=== PATIENT | female | born 1950 | race Caucasian/White ===

== ENCOUNTER 2016-12-17 17:37 | Inpatient (IN) | payer MEDICARE, OTHER ==
[~2016-12-17] VITALS: Ht 170.2 cm; Wt 129.1 kg
[2016-12-17] MEDS ORDERED: TESSALON PERLE100 MG PO (18:03)
[2016-12-17] MEDS ORDERED: CIPRO500 MG PO (18:03)
[2016-12-17] MEDS ORDERED: HYDROCODONE-APA1 TAB PO (18:05)
[2016-12-17] MEDS ORDERED: PROAIR HFA8.5 GM INH (18:05)
[2016-12-17] MEDS ORDERED: ULORIC40 MG PO (18:06)
[2016-12-17] MEDS ORDERED: FUROSEMIDE20 MG PO (18:07)
[2016-12-17] MEDS ORDERED: LEVOTHYROXINE75 MCG PO (18:07)
[2016-12-17] MEDS ORDERED: K-DUR20 MEQ PO (18:09)
[2016-12-17] MEDS ORDERED: MUCINEX D1 TAB.SR . PO (18:09)
--- NOTE | 2016-12-17 18:16 | NUR ---
RECIEVED FROM DOCTORS OFFICE. ALERT AND ORIENTED. DENIES ANY NEEDS. UP AB LUCILA. V/S STABLE WILL MONITOR
--- NOTE | 2016-12-17 18:39 | NUR ---
PT EATING, ASKED TO WAIT UNTIL SHE EATS TO START IV
[2016-12-17 18:53] LABS: BASOPHILS 0.2 % (0.0-2.0); EOSINOPHILS 3.9 % (0-7); HEMATOCRIT 39.1 % (36.0-48.0); HEMOGLOBIN 12.7 g/dL (12-16); IMMATURE GRANULOCYTES 0.4 % (0-5); LYMPHOCYTES 30.3 % (15-50); MCH 30.7 pg (26.0-34.0); MCHC 32.5 g/dL (31.0-37.0); MCV 94.4 fL (80.0-100.0); MEAN PLATELET VOLUME 9.5 fL (7.4-10.4); NEUTROPHILS 53.2 % (40-80); PLATELET COUNT 211 10x3/uL (130-400); RBC 4.14 10x6/uL (4.00-5.40); RDW 13.3 % (11.5-14.5); WBC 4.9 10x3/uL (4.8-10.8)
--- NOTE | 2016-12-17 19:05 | NUR ---
RECEIVED REPORT, PT NEEDS IV, WILL ATTEMPT TO START IV, BED IS LOW, SRX2, CALL LIGHT IN REACH, WILL CONTINUE TO MONITOR
--- NOTE | 2016-12-17 19:25 | NUR ---
IV SITED TO RIGHT FA 22G X2 STICKS. NURSE NOTIFIED FOR ANTIBIOTIC DOSE TO BE GIVEN.
[2016-12-17 19:48] LABS: ALBUMIN 3.4 g/dL (3.4-5.0); ANION GAP 16.5 mmol/L (8-16); BILIRUBIN - TOTAL 0.54 mg/dL (0.2-1.3); CALCIUM 8.6 mg/dL (8.5-10.1); CARBON DIOXIDE 23.7 mmol/L (21.0-32.0); CREATININE - SERUM 2.2 mg/dL (0.6-1.3); POTASSIUM - SERUM 3.2 mmol/L (3.5-5.1); PROTEIN - SERUM 6.9 g/dL (6.4-8.2)
[2016-12-17 20:00] VITALS: BP 137/72
[2016-12-18] VITALS (7 sets, daily range): BP systolic 114–146; BP diastolic 53–109; BMI 46.3
--- NOTE | 2016-12-18 07:54 | NUR ---
RADHA DE OLIVEIRA- PT IS CURRENTLY USING BATHROOM. UP AD LUCILA. ALERT AND ORIENTED. IV SEEN TO LEFT FOREARM THAT IS SALINE LOCKED AND PATENT. ON ROOM AIR. NO MONITOR. NO NEED AT CURRENT TIME. WILL CONTINUE TO MONITOR.
--- NOTE | 2016-12-18 09:09 | NUR ---
PT TO XRAY VIA WHEELCHAIR.
--- NOTE | 2016-12-18 12:36 | NUR ---
NOTIFIED EDEL MUNOZ NP WHO IS ON UNIT ABOUT PTS POTASSIUM LEVEL OF 3.2 THIS AM. ALSO NOTIFIED KRISTIAN HOLLINGSWORTH THAT PT IS TAKING A POTASSIUM PILL IN THE MORNING. KRISTIAN HOLLINGSWORTH IS NOW NOTIFIED. WILL CONTINUE TO MONITOR.
--- NOTE | 2016-12-18 18:05 | NUR ---
PT SITTING UP IN BED WITH IV ANTIBIOTICS RUNNING CURRENTLY. PT DENIES ANY NEED AT CURRENT TIME. WILL CONTINUE TO MONITOR.
--- NOTE | 2016-12-18 19:10 | NUR ---
RECEIVED REPORT, PT GOING VIA WHEELCHAIR TO CT SCAN, WILL CONTINUE TO MONITOR
--- NOTE | 2016-12-18 19:40 | NUR ---
BACK FROM CT SCAN, SITTING ON SIDE OF BED, IV-LFA-SL, [id number], DENIES ANY NEEDS, CALL LIGHT IN REACH, WILL CONTINUE TO MONITOR
[2016-12-19 01:48] VITALS: BP 128/65
--- NOTE | 2016-12-19 03:14 | NUR ---
ASSESSMENT COMPLETE, PT SLEEPING, CALL LIGHT IN REACH
--- NOTE | 2016-12-19 04:00 | NUR ---
LINUX NETWORK SYSTEMS ADMINISTRATOR AT BEDSIDE FOR VS. CONT TO MONITOR.
[2016-12-19 05:05] VITALS: BP 170/77
[2016-12-19 08:31] VITALS: BP 144/70
[2016-12-19 12:00] VITALS: BP 149/68
[2016-12-19 14:21] VITALS: Ht 170.2 cm; Wt 129.1 kg
[2016-12-19 14:53] LABS: BASOPHILS 0.1 % (0.0-2.0); EOSINOPHILS 0 % (0-7); HEMATOCRIT 39.3 % (36.0-48.0); IMMATURE GRANULOCYTES 0.9 % (0-5); LYMPHOCYTES 7.6 % (15-50); MCH 30.8 pg (26.0-34.0); MCHC 33.1 g/dL (31.0-37.0); MCV 93.1 fL (80.0-100.0); MEAN PLATELET VOLUME 9.4 fL (7.4-10.4); MONOCYTES 2.8 % (2-11); NEUTROPHILS 88.6 % (40-80); PLATELET COUNT 217 10x3/uL (130-400); RBC 4.22 10x6/uL (4.00-5.40); RDW 13.4 % (11.5-14.5)
[2016-12-19 15:01] LABS: WBC 7.7 10x3/uL (4.8-10.8)
[2016-12-19 15:04] LABS: ANION GAP 18.1 mmol/L (8-16); CALCIUM 8.6 mg/dL (8.5-10.1); CARBON DIOXIDE 21.7 mmol/L (21.0-32.0); CREATININE - SERUM 2.5 mg/dL (0.6-1.3)
[2016-12-19 15:09] LABS: POTASSIUM - SERUM 3.8 mmol/L (3.5-5.1)
[2016-12-19 16:22] VITALS: BP 158/67
--- NOTE | 2016-12-19 19:30 | NUR ---
RECEIVED REPORT, [id number] INFUSING, BED IS LOW, SRX2, DENIES ANY NEEDS, CALL LIGHT IN REACH, WILL CONTINUE TO MONITOR
[2016-12-19 22:23] VITALS: BP 150/68
[2016-12-20] VITALS (7 sets, daily range): BP systolic 120–154; BP diastolic 47–79
--- NOTE | 2016-12-20 03:34 | NUR ---
ASSESSMENT COMPLETE, NO DISTRESS NOTICED, RESTING WELL, CALL LIGHT IN REACH, WILL CONTINUE TO MONITOR
[2016-12-20 06:55] LABS: BASOPHILS 0.1 % (0.0-2.0); EOSINOPHILS 0 % (0-7); HEMATOCRIT 37.7 % (36.0-48.0); HEMOGLOBIN 12.3 g/dL (12-16); IMMATURE GRANULOCYTES 1.7 % (0-5); LYMPHOCYTES 7.4 % (15-50); MCH 30.1 pg (26.0-34.0); MCHC 32.6 g/dL (31.0-37.0); MCV 92.2 fL (80.0-100.0); MEAN PLATELET VOLUME 9.6 fL (7.4-10.4); MONOCYTES 5.3 % (2-11); NEUTROPHILS 85.5 % (40-80); PLATELET COUNT 253 10x3/uL (130-400); RBC 4.09 10x6/uL (4.00-5.40); RDW 13.4 % (11.5-14.5); WBC 8.7 10x3/uL (4.8-10.8)
[2016-12-20 06:59] LABS: ANION GAP 14.5 mmol/L (8-16); CALCIUM 8.7 mg/dL (8.5-10.1); CARBON DIOXIDE 23.2 mmol/L (21.0-32.0); CREATININE - SERUM 2.7 mg/dL (0.6-1.3); POTASSIUM - SERUM 3.7 mmol/L (3.5-5.1)
--- NOTE | 2016-12-20 07:33 | NUR ---
PT SITTING UP IN BED DENIES NEEDS WILL CONT TO MONITOR
[2016-12-20 08:22] LABS: MAGNESIUM - SERUM 1.4 mg/dL (1.8-2.4); POTASSIUM - SERUM 3.7 mmol/L (3.5-5.1)
--- NOTE | 2016-12-20 09:40 | CN ---
PATIENT NAME:SARAI STOREY MEDICAL RECORD: [id number] : [birth year] LOCATION:D. D.2133 ADMIT DATE: 12/17/16 ACCOUNT: [id number] CONSULTING PHYSICIAN: FLORENCIA ABRAHAM MD REFERRING PHYSICIAN: BRANNON LEONG MD DATE OF CONSULTATION: 12/17/2016 Consult Note CONSULT REQUESTING PHYSICIAN: Dr. Ahmet Francisco REASON FOR CONSULTATION: Acute exacerbation of chronic obstructive pulmonary disease, questionable pneumonia. HISTORY OF PRESENT ILLNESS: Ms. Storey is a 66-year-old female. She is sick for the last 1 week. She was initially given Zithromax and then she was given Cipro. Yesterday, she was seen in Dr. Leong's office. The patient was still wheezing, short of breath and congested. Chest radiograph showed some pneumonia. Now, she does not have any fever or chills, no night sweats. REVIEW OF SYSTEMS: CONSTITUTIONAL: Negative for fever and chills. HEENT: Sinus congestion. RESPIRATORY: As in history of present illness. GASTROINTESTINAL: No nausea, vomiting or diarrhea. GENITOURINARY: Negative. Other review of the systems is negative. PAST MEDICAL HISTORY: 1. Chronic kidney disease with a kidney stone. 2. Gastroesophageal reflux disease. 3. Bladder polyps. 4. History of breast biopsy. PAST SURGICAL HISTORY: 1. She has breast biopsy. 2. Hysterectomy. 3. Cholecystectomy. 4. Back surgery. 5. 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 6. Tube in left ear placement. FAMILY HISTORY: Noncontributory. PERSONAL AND SOCIAL HISTORY: The patient is an ex-smoker. She quit it more than 10 years ago. She is a nondrinker. PHYSICAL EXAMINATION: GENERAL: Now, the patient is sitting comfortably in bed, she is not in acute distress. VITAL SIGNS: The blood pressure is 143/55, pulse is 62, respiration is 18, temperature 98.1, SpO2 of 97% on room air. HEENT: Conjunctivae are pink. Sclerae nonicteric. NECK: Supple, no JVD. CHEST: Excursion is minimal on both sides prolonged. Expiration with wheezing. CONSULT REPORT [id number] SARAI STOREY HEART: Rhythm regular, normal sound, no murmur. ABDOMEN: Soft, bowel sounds present. No hepatosplenomegaly. RECTAL: Deferred. EXTREMITIES: No cyanosis, no clubbing, no pedal edema. SKIN: Warm, normal turgor. CENTRAL NERVOUS SYSTEM: The patient is awake and alert. There is no obvious cranial nerve abnormality. The gait was not tested. CHEST RADIOGRAPH: There are increased interstitial markings. No consolidation. OTHER LABORATORY DATA: CBC: WBC 4.9, hemoglobin is 12.7, hematocrit 39.1 and the platelet count 211. Chemistry: Sodium 143, potassium 3.2, BUN is 24, creatinine 2.2. IMPRESSION: 1. Acute exacerbation of chronic obstructive pulmonary disease. 2. Tracheobronchitis. 3. Associated pneumonitis. 4. Ex-smoker. 5. Gastroesophageal reflux disease. 6. Gout. 7. Chronic kidney disease. 8. Hypokalemia. RECOMMENDATION: 1. We will start methylprednisalone IV, Brovana, budesonide nebulizer, albuterol and ipratropium nebulizer. 2. Repeat the CT of the chest in a.m. 3. Singulair 10 mg a day. 4. Methylprednisolone IV. Dr. Leong, once again thanks for involving me in the care of Ms. Storey. TRANSINT:[id number] Voice Confirmation ID: [id number] DOCUMENT ID: [id number] FLORENCIA ABRAHAM MD at 0940 CC: BRANNON LEONG MD [id number] DICTATION DATE: 12/18/16 1738 COMMERCIAL ARTIST LETTERING: 12/19/16 0155 ADM IN [id number] [place] [address]
--- NOTE | 2016-12-20 13:34 | NUR ---
RESTING WITH EYES CLOSED. CALL LIGHT WITHIN REACH
--- NOTE | 2016-12-20 13:34 | NUR ---
Patient Name: SARAI MARTINEZ Admission Status: Urgent Accout number: [id number] Admission Date: 12-17-2016 : 1950 Admission Diagnosis: Attending: RONN Current LOS: 1 Anticipated DC Date: Planned Disposition: Home Primary Insurance: MEDICARE A & B LATE ENTRY FROM 12-18-16 AT 1342 HOURS: Discharge Planning Comments: * Is the patient Alert and Oriented? Yes 0 * How many steps to enter\exit or inside your home? RAMP 0 * PCP DR. LEONG 0 * Pharmacy [facility] [address] * Preadmission Environment Home with Family 0 * ADLs Independent 0 * Equipment Cane Other- ELECTRIC SCOOTER Walker 0 * Other Equipment NO MEDICAL EQUIPMENT PROVIDER PREFERENCE 0 * List name and contact numbers for known caregivers / representatives who currently or will assist patient after discharge: BRAXTON MARTINEZ, SPOUSE, 0 * Community resources currently utilized None 0 * Please name any agencies selected above. NONE 0 * Additional services required to return to the preadmission environment? No 0 * Can the patient safely return to the preadmission environment? Yes 0 * Has this patient been hospitalized within the prior 30 days at any hospital? No 0 CM MET WITH PT IN ROOM TO DISCUSS DISCHARGE PLANNING AND NEEDS. PT REPORTS LIVING AT HOME INDEPENDENTLY WITH SPOUSE. 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 PT HAS NO MEDICAL EQUIPMENT PROVIDER PREFERENCE. PT HAS NO OUTSIDE SERVICES ASSISTING IN THE HOME. CM DISCUSSED AVAILABILITY OF HOME HEALTH, REHAB SERVICES AND MEDICAL EQUIPMENT. PT DENIES DISCHARGE NEEDS, REPORTS HER SPOUSE WILL PICK HER UP FOR DISCHARGE HOME. PT PLANS TO DISCHARGE HOME WITH SPOUSE, NO ANTICIPATED NEEDS. CM TO FOLLOW AND ASSIST NEEDED. Marine Surveyor: Herber Ramirez
[2016-12-20] MEDS ORDERED: IPRAT-ALBUT 0.5-3 ML UPD ×2 (17:16→17:27)
[2016-12-20] MEDS ORDERED: LEVAQUIN500 MG PO (17:19)
[2016-12-20] MEDS ORDERED: PREDNISONE10 MG PO (17:20)
[2016-12-20] MEDS ORDERED: ADVAIR 250/501 DISK INH (17:25)
--- NOTE | 2016-12-20 20:56 | NUR ---
HS MEDS GIVEN.
--- NOTE | 2016-12-20 22:54 | NUR ---
RESTING IN BED. ALERT/ORIENTED. IV ABT ZITHROMAX UP AND INFUSING TO LFA. HS MEDS GIVEN. O2 @ 1.5ML/HR WITH NONLABORED RESPIRATIONS. SCDS IN PLACE. SEE ASSESSMENT. CPOC. PT SAYING SHE POSSIBLY WILL D/C TOMORROW. WILL MONITOR, CONTINUE POC.
[2016-12-21 00:24] VITALS: BP 131/52
[2016-12-21 04:23] VITALS: BP 150/76
[2016-12-21 06:16] LABS: BASOPHILS 0.1 % (0.0-2.0); EOSINOPHILS 0 % (0-7); HEMATOCRIT 37.2 % (36.0-48.0); HEMOGLOBIN 12.1 g/dL (12-16); IMMATURE GRANULOCYTES 2.1 % (0-5); LYMPHOCYTES 6.1 % (15-50); MCH 30.1 pg (26.0-34.0); MCHC 32.5 g/dL (31.0-37.0); MCV 92.5 fL (80.0-100.0); MEAN PLATELET VOLUME 9.6 fL (7.4-10.4); MONOCYTES 3.2 % (2-11); NEUTROPHILS 88.5 % (40-80); PLATELET COUNT 239 10x3/uL (130-400); RBC 4.02 10x6/uL (4.00-5.40); RDW 13.6 % (11.5-14.5)
[2016-12-21 06:28] LABS: ANION GAP 15.7 mmol/L (8-16); CALCIUM 8.7 mg/dL (8.5-10.1); CARBON DIOXIDE 24.1 mmol/L (21.0-32.0); CREATININE - SERUM 2.8 mg/dL (0.6-1.3); MAGNESIUM - SERUM 1.5 mg/dL (1.8-2.4); PHOSPHOROUS 4.6 mg/dL (2.5-4.9); POTASSIUM - SERUM 4.8 mmol/L (3.5-5.1)
--- NOTE | 2016-12-21 07:18 | NUR ---
WHEN GIVING AM MEDS, ALSO BROUGHT MOM AND DULCOLAX TABS FOR PATIENT PER DR MONGE ORDERS. PT STATES SHE HAD LARGE BM LAST NIGHT AND DOES NOT NEED THE LAXATIVE NOW.
--- NOTE | 2016-12-21 07:26 | NUR ---
PT SITTING UP ON SIDE OF THE BED DENIES NEEDS WILL CONT TO MONITOR,.
--- NOTE | 2016-12-21 08:47 | EC ---
PATIENT:SARAI MARTINEZ DATE OF SERVICE: 12/17/16 SEX: F MEDICAL RECORD: [id number] DATE OF : [birth year] LOCATION:D. D.213 AGE OF PATIENT: 66 ADMISSION DATE: 12/17/16 REFERRING PHYSICIAN: INTERPRETING PHYSICIAN: GERALD SOTO MD ECHOCARDIOGRAM REPORT ECHO CHARGES 4 ECHO COMPLETE CLINICAL DIAGNOSIS: ARRHYTHMIA ECHOCARDIOGRAPHIC MEASUREMENTS (adult normal given) AC root (d.<3.7cm) 3.0 LV Septum d (<1.2 cm> 1.3 Valve Excursion 1.6 LV Septum (systole) 1.8 Left Atria (s.<4.0cm> 4.8 LVPW d(<1.2cm) 1.2 RV (d.<2.3cm) 3.1 LVPW (sytole) 2.1 LV diastole(<5.6CM) 5.2 MV E-F(>70mm/sec) LV systole 2.8 LVOT Diameter 1.8 MV exc.(>10mm) Est.ejection fraction (50-75%) Pericardial Effusion N DOPPLER: LVIT A 100 E 70.0 LA RVSP 64.0 LVOT 232 AOP1/2T Asc. Ao 287 RVOT 135 RA PA 151 AV Gradient Peak 33.0 AV Mean 17.0 AV Area 2.1 MV Gradient Peak 6.0 MV Mean 2.4 MV Area COMMENTS: Hatch Boss: Elaine SMITHOE Welding Foreman:1 Dr. Soto TAPE# PACS DATE OF SERVICE: 12/19/2016 Echocardiogram FINDINGS: 1. Left ventricle chamber size is within normal limits. Left ventricular systolic function is normal. Overall ejection fraction estimated at 65%. 2. Left atrium is enlarged at 4.8 cm. Right atrium and right ventricular chamber sizes are as well mildly dilated. 3. Valvular structures have normal structure and motion. ECHOCARDIOGRAM REPORT [id number] SARAI MARTINEZ 4. Doppler interrogation reveals mild tricuspid regurgitation, no other valvular insufficiency or stenosis; however, pulmonary systolic pressure is elevated, estimated at 64 mmHg. 5. No evidence of pericardial effusion or left ventricular thrombus. TRANSINT:[id number] Voice Confirmation ID: [id number] DOCUMENT ID: [id number] GERALD SOTO MD at 0829 CC: [id number] DICTATION DATE: 12/19/16 1039 REAL ESTATE INVESTMENT ANALYST: 12/19/16 1254 ADM IN [facility] [address] [place] [address]
[2016-12-21 08:49] VITALS: BP 169/84
--- NOTE | 2016-12-21 09:38 | NUR ---
Patient Name: SARAI MARTINEZ Encounter No: [id number] : 1950 Primary Insurance: MEDICARE A & B Anticipated DC Date: 12-21-2016 Planned Disposition: Home DCP follow-up note: CM RECEIVED DISCHARGE ORDER 12-20-16 ALONG WITH PRESCRIPTION FOR NEBULIZER. CM MET WITH PT WHO HAS NO PREFERENCE ON MEDICAL EQUIPMENT PROVIDER. PT WOULD LIKE HOME DELIVERY FOR THE NEBLUZER. IMPORTANT MESSAGE FROM MEDICARE PROVIDED AND DISCUSSED. PT REPORTS THE DOCTOR IS DISCHARGING HER ON 12-21-16. CM VERIFIED THIS WITH TUMBLER TENDER. CM CONFIRMED DISCHARGE HOME ON 12-21-16. CM CALLED [facility], , SPOKE TO NERY WHO WILL ARRANGE HOME DELIVERY OF NEBULIZER. CM FAXED REFERRAL INFORMATION TO [facility] AT [phone]. PT NOTIFIED, DENIES DISCHARGE NEEDS, SPOUSE TO SUPERVISOR FRONT PT SHORTLY FOR DISCHARGE HOME. Herber Ramirez, CASE MANAGEMENT
--- NOTE | 2016-12-21 09:53 | NUR ---
WENT OVER PT DC PAPERWORK WITH PT PT VERBALIZES UNDERSTANDING DC PIV WITH CATHETER TIP INTACT. PT WAITING ON HER RIDE.
--- NOTE | 2016-12-21 10:23 | NUR ---
PT WHEELED OUT VIA VOLUNTEER.
--- NOTE | 2016-12-21 10:24 | NUR ---
PT HAS HER RESPIRATORY DISK AND SCRIPT FROM HOSPITAL. THAT WERE ORDERED TO BE GIVEN TO HER.
== END 2016-12-21 10:24 | disposition home or self-care (01) | DRG 190 ==
LOC: D.M2 17:37
PROVIDERS: Family Medicine; ADMIT Family Medicine
DX: J44.0 Chronic obstructive pulmonary disease with (acute) lower respiratory infection (principal); J18.9 Pneumonia, unspecified organism; J44.1 Chronic obstructive pulmonary disease with (acute) exacerbation; I12.9 Hypertensive chronic kidney disease with stage 1 through stage 4 chronic kidney disease, or unspecified chronic kidney disease; N18.3 Chronic kidney disease, stage 3 (moderate); K21.9 Gastro-esophageal reflux disease without esophagitis; E87.6 Hypokalemia; I07.1 Rheumatic tricuspid insufficiency; Z87.891 Personal history of nicotine dependence

== ENCOUNTER → 2017-05-13 09:49 | Outpatient (CLI) | payer MEDICARE, OTHER ==
[2016-12-19 14:21] VITALS: BMI 44.4
[~2017-05-13 09:49] MED LIST: ADVAIR 250/501 DISK INH; CIPRO500 MG PO; FUROSEMIDE20 MG PO; HYDROCODONE-APA1 TAB PO; IPRAT-ALBUT 0.5-3 ML UPD; K-DUR20 MEQ PO; LEVAQUIN500 MG PO; LEVOTHYROXINE75 MCG PO; MUCINEX D1 TAB.SR . PO; PREDNISONE10 MG PO; PROAIR HFA8.5 GM INH; TESSALON PERLE100 MG PO; ULORIC40 MG PO
[2017-05-13 13:03] LABS: ALBUMIN 3.2 g/dL (3.4-5.0); BILIRUBIN - DIRECT 0.15 mg/dL (0.00-0.30); BILIRUBIN - INDIRECT 0.49 mg/dL (0.00-1.00); BILIRUBIN - TOTAL 0.64 mg/dL (0.2-1.3); PROTEIN - SERUM 6.4 g/dL (6.4-8.2); THYROID STIMULATING HORMONE 2.32 uIU/mL (0.36-3.74)
[2017-05-14 14:19] LABS: ANA REFLEX - ANTICHROMATIN ABS <0.2 AI (0.0-0.9); ANA REFLEX - CENTROMERE B ABS <0.2 AI (0.0-0.9); ANA REFLEX - DBL STRANDED DNA <1 IU/mL (0-9); ANA REFLEX - DIRECT Positive (Negative); ANA REFLEX - JO-1 AB <0.2 AI (0.0-0.9); ANA REFLEX - RNP ANTIBODIES 2.8 AI (0.0-0.9); ANA REFLEX - SCL-70 <0.2 AI (0.0-0.9); ANA REFLEX - SJOGRENS AB SSA <0.2 AI (0.0-0.9); ANA REFLEX - SJOGRENS AB SSB <0.2 AI (0.0-0.9); ANA REFLEX - SMITH AB <0.2 AI (0.0-0.9)
== END | disposition home or self-care (01) ==
LOC: D.ECHO 09:00
PROVIDERS: Internal Medicine Pulmonary Disease
DX: I27.2 Other secondary pulmonary hypertension (principal); J44.9 Chronic obstructive pulmonary disease, unspecified

== ENCOUNTER → 2017-06-10 19:19 | Outpatient (CLI) | payer MEDICARE, OTHER ==
[2016-12-19 14:21] VITALS: BMI 44.4
== END | disposition home or self-care (01) ==
LOC: D.SLEEP 19:19
DX: G47.33 Obstructive sleep apnea (adult) (pediatric) (principal)

== ENCOUNTER → 2017-08-16 11:19 | Outpatient (CLI) | payer MEDICARE, OTHER ==
[2016-12-19 14:21] VITALS: BMI 44.4
== END | disposition home or self-care (01) ==
LOC: D.CT 08-12 13:00 → D.NM 08-12 13:00 → D.CT 08-12 14:30 → D.NM 10:00
DX: R94.2 Abnormal results of pulmonary function studies (principal); I10 Essential (primary) hypertension; I27.0 Primary pulmonary hypertension

== ENCOUNTER → 2017-11-28 13:06 | Outpatient (CLI) | payer MEDICARE, OTHER ==
[2016-12-19 14:21] VITALS: BMI 44.4
== END | disposition home or self-care (01) ==
LOC: D.RAD 13:00
DX: D51.0 Vitamin B12 deficiency anemia due to intrinsic factor deficiency (principal)

== ENCOUNTER → 2018-02-17 09:23 | Outpatient (CLI) | payer MEDICARE, OTHER ==
[2016-12-19 14:21] VITALS: BMI 44.4
--- NOTE | ~2018-02-17 | EC ---
PATIENT:SARAI MARTINEZ DATE OF SERVICE: 02/17/18 SEX: F MEDICAL RECORD: [id number] DATE OF : [birth year] LOCATION:D.[facility] AGE OF PATIENT: 67 ADMISSION DATE: 02/17/18 REFERRING PHYSICIAN: INTERPRETING PHYSICIAN: NAA CORONEL MD ECHOCARDIOGRAM REPORT ECHO CHARGES 4 ECHO COMPLETE Date: 02/17 CLINICAL DIAGNOSIS: PULMONARY HTN ECHOCARDIOGRAPHIC MEASUREMENTS (adult normal given) AC root (d.<3.7cm) 3.1 cm LV Septum d (<1.2 cm> 1.4 cm Valve Excursion 1.6 cm LV Septum (systole) 1.7 cm Left Atria (s.<4.0cm> 4.3 cm LVPW d(<1.2cm) 1.4 cm RV (d.<2.3cm) 2.8 cm LVPW (sytole) 1.9 cm LV diastole(<5.6CM) 5.7 cm MV E-F(>70mm/sec) cm LV systole 3.4 cm LVOT Diameter 1.7 cm MV exc.(>10mm) cm Est.ejection fraction (50-75%) % DOPPLER: LVIT cm/sec A 74.0 cm/sec E 100 cm/sec LA cm/sec RVSP 57.0 mmHg LVOT 120 cm/sec AOP1/2T m/s Asc. Ao 213 cm/sec RVOT 81.0 cm/sec RA cm/sec PA 114 cm/sec AV Gradient Peak 18.1 mmHg AV Mean 9.1 mmHg AV Area 1.1 cm MV Gradient Peak 6.0 mmHg MV Mean 1.7 mmHg MV Area cm COMMENTS: Spice Room Worker: 1 MADAI SMITHOE Supply Chain Analyst: 3 Dr. Stone TAPE# PACS Pericardial Effusion N DATE OF SERVICE: Adequate 2-D echo, color flow and spectral Doppler, and M-Mode. Mild LVH. LV internal dimension is normal. Wall motion is normal. EF is 55%. Aortic valve is tricuspid. No evidence of stenosis by Doppler interrogation. Left atrium is mildly dilated at 4.3 cm. Mitral valve is thickened. Mild MR. Right-sided chambers appear normal. [id number] TR. RV systolic pressure is estimated at 57 mmHg via the continuity equation. ECHOCARDIOGRAM REPORT [id number] SARAI MARTINEZ TRANSINT:[id number] Voice Confirmation ID: [id number] DOCUMENT ID: [id number] NAA CORONEL MD at 1337 CC: [id number] DICTATION DATE: 02/17/18 1120 MIRROR MAKER: 02/17/18 1247 DEP CLI 02/17/18 [id number] [place] [id number]
== END | disposition home or self-care (01) ==
LOC: D.ECHO 09:00
DX: I27.21 Secondary pulmonary arterial hypertension (principal); J18.9 Pneumonia, unspecified organism

== ENCOUNTER → 2018-03-18 19:27 | Outpatient (CLI) | payer MEDICARE, OTHER ==
[2016-12-19 14:21] VITALS: BMI 44.4
== END | disposition home or self-care (01) ==
LOC: D.SLEEP 19:27
DX: G47.33 Obstructive sleep apnea (adult) (pediatric) (principal)

== ENCOUNTER → 2018-08-18 08:54 | Outpatient (CLI) | payer MEDICARE, OTHER ==
[2016-12-19 14:21] VITALS: BMI 44.4
--- NOTE | ~2018-08-18 | EC ---
PATIENT:SARAI MARTINEZ DATE OF SERVICE: 08/18/18 SEX: F MEDICAL RECORD: [id number] DATE OF : [birth year] LOCATION:D.CT AGE OF PATIENT: 68 ADMISSION DATE: 08/18/18 REFERRING PHYSICIAN: INTERPRETING PHYSICIAN: GERALD SOTO MD ECHOCARDIOGRAM REPORT ECHO CHARGES 4 ECHO COMPLETE Date: 08/18/18 CLINICAL DIAGNOSIS: PULMONARY HTN ECHOCARDIOGRAPHIC MEASUREMENTS (adult normal given) AC root (d.<3.7cm) 3.0 cm LV Septum d (<1.2 cm> 1.2 cm Valve Excursion 2.0 cm LV Septum (systole) 1.6 cm Left Atria (s.<4.0cm> 4.1 cm LVPW d(<1.2cm) 1.1 cm RV (d.<2.3cm) 3.5 cm LVPW (sytole) 1.7 cm LV diastole(<5.6CM) 5.8 cm MV E-F(>70mm/sec) cm LV systole 3.5 cm LVOT Diameter 1.7 cm MV exc.(>10mm) cm Est.ejection fraction (50-75%) % DOPPLER: LVIT cm/sec A 77.0 cm/sec E 91.0 cm/sec LA cm/sec RVSP 57.1 mmHg LVOT 102 cm/sec AOP1/2T m/s Asc. Ao 195 cm/sec RVOT 60.0 cm/sec RA cm/sec PA 121 cm/sec AV Gradient Peak 15.1 mmHg AV Mean 7.2 mmHg AV Area 1.2 cm MV Gradient Peak 5.9 mmHg MV Mean 1.6 mmHg MV Area cm COMMENTS: Professional Athlete: Elaine SMITHOE Milieu Therapist: 1 Dr. Soto TAPE# PACS Pericardial Effusion N DATE OF SERVICE: 08/18/2018 PROCEDURE: Echocardiogram. FINDINGS: 1. Left ventricular chamber size is mildly dilated. Left ventricular systolic function is preserved. Overall ejection fraction estimated at 55%. 2. Left atrium is enlarged at 4.1 cm. Right atrium and right ventricle chamber sizes are as well mildly dilated. 3. Valvular structures have normal structure and motion. ECHOCARDIOGRAM REPORT [id number] SARAI MARTINEZ 4. Doppler interrogation reveals mild mitral regurgitation, moderate tricuspid regurgitation, no other valvular insufficiency or stenosis. Pulmonary systolic pressure is estimated 57 mmHg. 5. No evidence of pericardial effusion or left ventricular thrombus. TRANSINT:[id number] Voice Confirmation ID: [id number] DOCUMENT ID: [id number] GERALD SOTO MD at 1914 CC: [id number] DICTATION DATE: 08/18/18 1217 HR PAYROLL COORDINATOR: 08/18/18 1302 DEP CLI 08/18/18 [facility] [address] [place] [id number]
== END | disposition home or self-care (01) ==
LOC: D.CT 08:54
DX: R94.2 Abnormal results of pulmonary function studies (principal); I27.21 Secondary pulmonary arterial hypertension

== ENCOUNTER → 2019-05-22 08:33 | Outpatient (CLI) | payer MEDICARE, OTHER ==
[2016-12-19 14:21] VITALS: BMI 44.4
--- NOTE | 2019-05-22 14:45 | EC ---
PATIENT:SARAI MARTINEZ DATE OF SERVICE: 05/22/19 SEX: F MEDICAL RECORD: [id number] DATE OF : [birth year] LOCATION:D[facility] AGE OF PATIENT: 69 ADMISSION DATE: 05/22/19 REFERRING PHYSICIAN: INTERPRETING PHYSICIAN: GERALD SOTO MD ECHOCARDIOGRAM REPORT ECHO CHARGES 4 ECHO COMPLETE Date: 05/22/19 CLINICAL DIAGNOSIS: PULMONARY HTN ECHOCARDIOGRAPHIC MEASUREMENTS (adult normal given) AC root (d.<3.7cm) 3.1 cm LV Septum d (<1.2 cm> 1.6 cm Valve Excursion 1.6 cm LV Septum (systole) 1.8 cm Left Atria (s.<4.0cm> 4.3 cm LVPW d(<1.2cm) 1.4 cm RV (d.<2.3cm) 4.2 cm LVPW (sytole) 1.6 cm LV diastole(<5.6CM) 4.3 cm MV E-F(>70mm/sec) cm LV systole 3.2 cm LVOT Diameter 1.9 cm MV exc.(>10mm) 1.9 cm Est.ejection fraction (50-75%) % DOPPLER: LVIT cm/sec A 88.0 cm/sec E 80.0 cm/sec LA cm/sec RVSP 46 mmHg LVOT 149 cm/sec AOP1/2T m/s Asc. Ao 185 cm/sec RVOT 102 cm/sec RA cm/sec PA 128 cm/sec AV Gradient Peak 13.74mmHg AV Mean 6.62 mmHg AV Area 2.7 cm MV Gradient Peak 4.30 mmHg MV Mean 1.44 mmHg MV Area cm COMMENTS: Sailmaker: Lianna DILLARD Mica Patcher: 1 Dr. Soto TAPE# PACS Pericardial Effusion N DATE OF SERVICE: 05/22/2019 PROCEDURE: Echocardiogram. FINDINGS: 1. Left ventricular chamber size is within normal limits. Left ventricular systolic function is normal. Overall ejection fraction estimated at 60%. 2. Left atrium, right atrium, and right ventricle chamber sizes are within normal limits. 3. Valvular structures have normal structure and motion. ECHOCARDIOGRAM REPORT [id number] SARAI MARTINEZ 4. Doppler interrogation reveals only mild tricuspid regurgitation, no other valvular insufficiency or stenosis. 5. No evidence of pericardial effusion or left ventricular thrombus. TRANSINT:[id number] Voice Confirmation ID: [id number] DOCUMENT ID: [id number] GERALD SOTO MD at 1445 CC: [id number] DICTATION DATE: 05/22/19 1417 MORTGAGE PROCESSING CLERK: 05/22/19 1431 [facility] [address] [place] [place] [id number]
== END | disposition home or self-care (01) ==
LOC: D.CT 05-19 10:00 → D.ECHO 08:33
PROVIDERS: ATTEND Internal Medicine Pulmonary Disease
DX: D71 Functional disorders of polymorphonuclear neutrophils (principal); I27.21 Secondary pulmonary arterial hypertension

== ENCOUNTER → 2019-10-14 08:39 | Outpatient (CLI) | payer MEDICARE, OTHER ==
[2016-12-19 14:21] VITALS: BMI 44.4
== END | disposition home or self-care (01) ==
LOC: D.ECHO 08:39
PROVIDERS: ATTEND Internal Medicine Pulmonary Disease
DX: D71 Functional disorders of polymorphonuclear neutrophils (principal); I27.21 Secondary pulmonary arterial hypertension

== ENCOUNTER → 2020-03-15 13:15 | Outpatient (CLI) | payer MEDICARE, OTHER ==
[2019-12-01 13:27] VITALS: BMI 41.9
[~2020-03-15 13:15] MED LIST changes: +ALBUTEROL SULF8.5 GM INH; +COLACE100 MG PO; +FLUTICASONE PRO16 GM NASAL; +MUCINEX DM ER1 EAC1 PO; +Nystatin Oral Susp [ PO; +OMEPRAZOLE40 MG PO; +OMNICEF300 MG PO; +SINGULAIR10 MG PO; +TRELEGY ELLIPT1 EACH INH; +VIBRAMYCIN 100100 MG PO
== END | disposition home or self-care (01) ==
LOC: D.LABREF 13:15
PROVIDERS: ATTEND Internal Medicine Pulmonary Disease
DX: Z11.59 Encounter for screening for other viral diseases (principal)

== ENCOUNTER → 2020-03-16 13:31 | Outpatient (CLI) | payer MEDICARE, OTHER ==
[2019-12-01 13:27] VITALS: BMI 41.9
== END | disposition home or self-care (01) ==
LOC: D.RT 02-08 14:00
PROVIDERS: ATTEND Internal Medicine Pulmonary Disease
DX: J44.9 Chronic obstructive pulmonary disease, unspecified (principal)

== ENCOUNTER → 2020-04-19 09:57 | Outpatient (CLI) | payer MEDICARE, OTHER ==
[2019-12-01 13:27] VITALS: BMI 41.9
== END | disposition home or self-care (01) ==
LOC: D.CT 09:30 → D.ECHO 10:05
PROVIDERS: ATTEND Internal Medicine Pulmonary Disease
DX: D71 Functional disorders of polymorphonuclear neutrophils (principal); I27.21 Secondary pulmonary arterial hypertension